=== PATIENT | male | born 1950 | race Caucasian/White ===

== ENCOUNTER → 2018-01-12 | Outpatient (CLI) | payer MEDICARE ==
[~2018-01-12] MED LIST: ALLO300T PO; CHOL200074 PO; COLC0.6T37 PO; LISI40TA PO; M-171CAP PO; TRAM50TA2 PO; TRAZ50TA18 PO; TURM1POW PO; WARF-36 PO
[2018-01-12 10:38] LABS: MICROSCOPIC NOT IND
[2018-01-12 10:40] LABS: CULTURE INDICATED? NO
== END ==
LOC: STAR 09:19
PROVIDERS: ATTEND Orthopaedic Surgery
DX: M17.32 Unilateral post-traumatic osteoarthritis, left knee (principal)
CPT/HCPCS: 81003; 87081

== ENCOUNTER → 2018-11-10 | Outpatient (CLI) | payer MEDICARE ==
[~2018-11-10] MED LIST changes: +OXYC5CAP2 PO; -TRAZ50TA18 PO; +TRAZ50TA66 PO
== END | disposition home or self-care (01) ==
LOC: CFH 09:36
PROVIDERS: ATTEND Family Medicine
DX: Z01.818 Encounter for other preprocedural examination (principal)
CPT/HCPCS: 71046

== ENCOUNTER → 2018-12-30 | Outpatient (CLI) | payer MEDICARE ==
[~2018-12-30] MED LIST changes: +ENOX40SY4 SQ
== END | disposition home or self-care (01) ==
LOC: STAR 12:20
PROVIDERS: ATTEND Orthopaedic Surgery
DX: Z01.818 Encounter for other preprocedural examination (principal); M25.561 Pain in right knee; M17.11 Unilateral primary osteoarthritis, right knee
CPT/HCPCS: 87081

== ENCOUNTER 2019-02-02 05:56 | Observation (INO) | payer MEDICARE ==
[~2019-02-02] VITALS: Ht 170.2 cm; Wt 80.4 kg
[2019-02-02] MEDS ORDERED: ROPIvacaine/PF 0.2%, 20 ML ONE (06:24)
[2019-02-02] MEDS ORDERED: KETOROLAC 60 MG/2 ML ONE (06:24)
[2019-02-02] MEDS ORDERED: TRANEXAMIC ACID 100 MG/ML, 10ML ONE (06:24)
[2019-02-02] MEDS ORDERED: EPINEPHRINE 1 MG/ML, 1ML ONE (06:24)
[2019-02-02] MEDS ORDERED: SODIUM CHLORIDE 0.9% 50 ML ONE (06:24)
[2019-02-02] MEDS ORDERED: VANCOMYCIN 1,000 MG ONE (06:24)
[2019-02-02] MEDS ORDERED: LACTATED RINGERS 1,000 ML IV SCH (06:26)
[2019-02-02 06:33] VITALS: BP 118/78
[2019-02-02] MEDS ORDERED: FENTANYL PF 250 MCG/5ML ONE (06:46)
[2019-02-02] MEDS ORDERED: MIDAZOLAM 1 MG/ML, 2ML ONE (06:46)
[2019-02-02] MEDS ORDERED: TAMSULOSIN 0.4 MG CAP.ER.24H PO ONE (07:00)
[2019-02-02] MEDS ORDERED: DIAZEPAM 5 MG TABLET PO ONE (07:00)
[2019-02-02] MEDS ORDERED: GABAPENTIN 300 MG CAPSULE PO ONE (07:00)
[2019-02-02] MEDS ORDERED: ACETAMINOPHEN 500 MG TABLET PO ONE (07:00)
[2019-02-02 07:05] LABS: INTERNATIONAL NORMALIZED RATIO 0.96 (0.93-1.1); PROTHROMBIN TIME 10.1 Seconds (9.6-11.5)
[2019-02-02] MEDS ORDERED: ALBUTEROL/IPRATROPIUM 2.5MG/0.5MG, 3 ML NPPB PRN (08:00)
[2019-02-02] MEDS ORDERED: METOPROLOL 1 MG/ML, 5ML IV PRN (08:00)
[2019-02-02] MEDS ORDERED: hydrALAzine 20 MG/ML, 1ML IV PRN (08:00)
[2019-02-02] MEDS ORDERED: MEPERIDINE/PF 25MG/0.5ML IVPush PRN (08:00)
[2019-02-02] MEDS ORDERED: OXYcodone 5 MG/5 ML ORAL.SOL UDC PO PRN (08:00)
[2019-02-02] MEDS ORDERED: ONDANSETRON 2MG/ML, 2ML IV PRN (08:00)
[2019-02-02] MEDS ORDERED: FENTANYL PF 100 MCG/2ML IV PRN (08:00)
[2019-02-02] MEDS ORDERED: SCOPOLAMINE PATCH, 1.5MG PATCH.TD72 TD PRN (08:00)
[2019-02-02] MEDS ORDERED: MIDAZOLAM 1 MG/ML, 2ML IV PRN (08:00)
[2019-02-02] MEDS ORDERED: PROMETHAZINE 25 MG/ML, 1ML IV PRN (08:00)
[2019-02-02] MEDS ORDERED: HYDROmorphone 2 MG/ML, 1ML IVPush PRN (08:00)
[2019-02-02] MEDS ORDERED: CEFAZOLIN 1,000 MG ONE (08:01)
[2019-02-02] MEDS ORDERED: PROPOFOL 10 MG/ML, 20ML ONE (08:01)
[2019-02-02] MEDS ORDERED: BUPIVACAINE/PF 0.25% ONE (08:01)
[2019-02-02] MEDS ORDERED: LIDOCAINE-MPF 2% ,5ML ONE (08:01)
[2019-02-02] MEDS ORDERED: DEXAMETHASONE 4 MG/ML, 1ML ONE (08:01)
[2019-02-02] MEDS ORDERED: ONDANSETRON 2MG/ML, 2ML ONE (08:01)
[2019-02-02] MEDS ORDERED: MEPERIDINE/PF 25MG/ML,1ML ONE (08:24)
[2019-02-02] MEDS ORDERED: D5%-0.45% NACL 1,000 ML IV SCH (08:24)
[2019-02-02] MEDS ORDERED: DIPHENHYDRAMINE 25 MG CAPSULE PO PRN (08:30)
[2019-02-02] MEDS ORDERED: ONDANSETRON 4 MG TABLET PO PRN (08:30)
[2019-02-02] MEDS ORDERED: PROMETHAZINE 25 MG/ML, 1ML IM PRN (08:30)
[2019-02-02] MEDS ORDERED: PSYLLIUM PACKET PO PRN (08:30)
[2019-02-02] MEDS: ACETAMINOPHEN 500 MG TABLET PO SCH ×2 (08:30→14:53)
[2019-02-02] MEDS ORDERED: PROMETHAZINE 12.5 MG SUPP PR PRN (08:30)
[2019-02-02] MEDS ORDERED: KETOROLAC 30 MG/1 ML IV SCH (08:30)
[2019-02-02] MEDS ORDERED: ALUMINUM/MAG/SIMETHICONE 30 ML UDC PO PRN (08:30)
[2019-02-02] MEDS ORDERED: SENNA/DOCUSATE TABLET PO PRN (08:30)
[2019-02-02] MEDS ORDERED: DIAZEPAM 5 MG TABLET PO PRN (08:30)
[2019-02-02] MEDS ORDERED: DEXAMETHASONE 4 MG/ML, 1ML IVPush ONE (08:30)
[2019-02-02] MEDS ORDERED: ZOLPIDEM 5MG TABLET PO PRN (08:30)
[2019-02-02] MEDS ORDERED: HYDROmorphone 1 MG/ML, 1ML INJ IVPush PRN (08:30)
[2019-02-02] MEDS ORDERED: BISACODYL 10 MG SUPP PR PRN (08:30)
[2019-02-02] MEDS ORDERED: POLYETHYLENE GLYCOL 17 GM PACKET PO PRN (08:30)
[2019-02-02] MEDS ORDERED: ONDANSETRON 2MG/ML, 2ML IVPush PRN (08:30)
[2019-02-02] MEDS ORDERED: OXYcodone IR 5MG TABLET PO PRN (08:30)
[2019-02-02] MEDS ORDERED: SCOPOLAMINE PATCH, 1.5MG PATCH.TD72 TD SCH (08:30)
[2019-02-02] MEDS ORDERED: MAGNESIUM HYDROXIDE 8%, 30ML UDC PO PRN (08:30)
[2019-02-02] MEDS ORDERED: FENTANYL PF 100 MCG/2ML ONE (08:42)
[2019-02-02] MEDS ORDERED: OXYcodone 5 MG/5 ML ORAL.SOL UDC ONE (08:42)
[2019-02-02] MEDS ORDERED: KETOROLAC 30 MG/1 ML ONE (08:53)
[2019-02-02] MEDS ORDERED: DOCUSATE 100 MG CAPSULE PO SCH (09:00)
[2019-02-02] MEDS ORDERED: ALLOPURINOL 300 MG TABLET PO SCH (09:00)
[2019-02-02] MEDS ORDERED: TRANEXAMIC ACID 1,000 MG in SODIUM CHLORIDE 0.9% 100 ML IVPB ONE (09:00)
[2019-02-02] MEDS ORDERED: LISINOPRIL 40 MG TABLET PO SCH (09:00)
[2019-02-02] MEDS ORDERED: MULTIVITAMINS/MINERALS TABLET PO SCH (09:00)
[2019-02-02] MEDS ORDERED: FERROUS SULFATE 325 MG TABLET PO SCH (09:00)
[2019-02-02] MEDS ORDERED: ASCORBIC ACID 500 MG TABLET PO SCH (09:00)
[2019-02-02 09:45] VITALS: BP 117/69
[2019-02-02] MEDS ORDERED: CALCIUM/VITAMIN D3 250-125 TABLET PO SCH (12:00)
[2019-02-02 12:30] VITALS: BP 96/61
[2019-02-02] MEDS ORDERED: CEFAZOLIN PMX 1GM/50ML 50 ML IVPB SCH (14:30)
[2019-02-02] MEDS ORDERED: WARFARIN 5 MG TABLET PO-COUM SCH (18:00)
[2019-02-02] MEDS ORDERED: TRAZODONE 50MG TABLET PO SCH (21:00)
[2019-02-03] MEDS ORDERED: ENOXAPARIN 30 MG/0.3 ML SQ SCH (06:00)
[2019-02-03] MEDS ORDERED: DEXAMETHASONE 4 MG/ML, 1ML IVPush ONE (06:00)
== END 2019-02-02 15:45 | disposition home or self-care (01) ==
LOC: OUT 05:56 → ORIP 08:24 → 4NOR 09:31 → DCLOUNGE 15:34
PROVIDERS: ADMIT Orthopaedic Surgery; ATTEND Orthopaedic Surgery
DX: M17.11 Unilateral primary osteoarthritis, right knee (principal); I10 Essential (primary) hypertension; Z79.01 Long term (current) use of anticoagulants; Z79.899 Other long term (current) drug therapy
CPT/HCPCS: 27447; 36415; 73560; 85610; 85730; 97110; 97161; C1713; C1776; G0378; J0171; J0690; J1100; J1885; J2175; J2250; J2405; J2704; J2795; J3010; J3490; J3370

== ENCOUNTER 2020-11-03 09:27 | Outpatient (CLI) | payer MEDICARE ==
[~2020-11-03 09:27] MED LIST changes: -LISI40TA PO; +LISI40TA9 PO
== END 2020-11-03 23:59 | disposition home or self-care (01) ==
LOC: RAD 09:27
PROVIDERS: ATTEND Family Medicine
DX: M79.661 Pain in right lower leg (principal)